=== PATIENT | male | born 1955 | race Caucasian/White ===

== ENCOUNTER 2017-06-22 19:39 | Emergency (ER) | payer OTHER ==
[~2017-06-22] VITALS: Ht 172.7 cm; Wt 117.9 kg
[~2017-06-22 19:39] MED LIST: DOXA2TAB1 PO; ENAL20TA19 PO; GLIP10TE PO; METF850T PO; METO50TE2 PO; NATE60TA PO; SIMV40TA1 PO
[2017-06-22 19:48] VITALS: BP 152/86
--- NOTE | 2017-06-22 19:56 | NUR ---
Pt taken to bed 12.
--- NOTE | 2017-06-22 20:03 | NUR ---
62Y M BIB SELF C/O BILAT KNEE PAIN X 3 WEEKS AGO. PT DENIES ANY TRAUMA OR FALL. PT AAOX4. PT STATES PAIN IS INTERMITTENT. RADIATING TO THE LOWER BACK. PT STATES PAIN IS 6/10. MED HX: DM, HTN, OSTEOARTHRITIS, AND TIA X MONTHS AGO. PT DENIES ANY SOB, CP, N/V/D AT THE MOMENT. PT BREATHING IS UNLABORED AND CLEAR BILAT. PT AMBULATED TO ER BED WITH STEADY GAIT.
--- NOTE | 2017-06-22 20:08 | NUR ---
Patient being evaluated by Dr. Buckner at bedside.
[2017-06-22] MEDS ORDERED: KETOROLAC 60 MG/2 ML VIAL IM ONE (20:25)
--- NOTE | 2017-06-22 22:33 | NUR ---
Patient discharged with v/s stable. Written and verbal after care instructions given and explained. Patient alert, oriented and verbalized understanding of instructions. Ambulatory with steady gait. All questions addressed prior to discharge. ID band removed. Patient advised to follow up with PMD. Rx of TYLENOL #3 TAB given. Patient educated on indication of medication including possible reaction and side effects. Opportunity to ask questions provided and answered.
[2017-06-22 22:34] VITALS: BP 141/83
== END 2017-06-22 22:33 | disposition home or self-care (01) ==
LOC: MED 19:39
DX: M25.561 Pain in right knee (principal); I25.2 Old myocardial infarction; E11.9 Type 2 diabetes mellitus without complications; I10 Essential (primary) hypertension; Z79.899 Other long term (current) drug therapy; Z85.46 Personal history of malignant neoplasm of prostate
CPT/HCPCS: 73562; 96372; 99284; J1885; Q0092